=== PATIENT | female | born 2000 | race Caucasian/White ===

== ENCOUNTER 2018-12-25 21:00 | Inpatient (IN) | payer OTHER, SELFPAY ==
[2018-12-26 03:20] VITALS: BMI 35.9
--- NOTE | 2018-12-26 03:46 | PDOC.LDHP ---
Labor and Delivery H&P Chief complaint: scheduled induction HPI: 18 y/o at 39.2wks by LMP c/w 11.1 wk US here for elective induction she reports vaginal pressure and a mild headache for the past four days. Denies LOF, VB/VD, decreased movement, contractions, visual disturbance, or swelling in her hands and feet. Current gestational age (weeks): 39 (.2) Due date: 12/31/18 Dating criteria: last menstrual period Grav: 2 Para: 1 OB History Details: hx of 3rd degree perineal laceration Current complications: none Abnormal US findings: No (anterior placenta ) Past Medical History: none Current medications: pre- vitamins Previous surgical history: none Allergies/Adverse Reactions: Allergies Allergy/AdvReac Type Severity Reaction Status Date / Time No Known Allergies Allergy Verified 12/26/18 03:12 Social history: none - Physical Exam Vital signs reviewed and normal: yes General: NAD, resting Heart: RRR Lungs: CTAB Abdomen: NTTP Extremeties: no edema FHT: category 1 (baseline 140, accels, no decels), variability present [place] contractions every: 8 mins - Vaginal Exam cm dilated: 1 Effacement: 0% Station: -3 - OB Labs Blood type: O RH: positive Antibody Screen: negative HIV: negative RPR: negative HEPSAg: negative 1 hour GCT: negative GBS: negative Urine drug screen: not done Rubella: immune Additional Labs: GC neg, HbA1C 5.4, quad neg - Assessment L&D Assessment: elective induction at term - Plan Plan: admit to L&D -: - bedside sono: vertex, anterior placenta - puckett score 1, cytotec for cervical ripening q3hr as ctx pattern allows - continuous monitoring, repeat exam in 4 hours - desires epidural, anesthesia consulted Addendum - Attending - Attending Attestation Date/Time: 12/26/18 1487 I personally evaluated the patient and discussed the management with Dr. Yu. I agree with the History, Examination, Assessment and Plan documented above with any addition or exceptions noted below. Unfortunately induction delayed d/t business of L&D earlier. Now sisi relatively frequently. Monitor 2-3 hours and consider balloon placement vs rescheduling next week.
[2018-12-26] MEDS ORDERED: Promethazine HCl 25 MG/ML VIAL IM PRN ×2 (03:50→23:50)
[2018-12-26] MEDS ORDERED: NS / Oxytocin 40 units/1000ml 1,000 ML IV PRN (03:50)
[2018-12-26] MEDS ORDERED: Ondansetron PF 4 MG/2 ML Vial IVP PRN ×2 (03:50→23:50)
[2018-12-26] MEDS ORDERED: Carboprost 250 MCG/ML AMP IM PRN (03:50)
[2018-12-26] MEDS ORDERED: Methylergonovine 0.2 MG/ML VIAL IM PRN (03:50)
[2018-12-26] MEDS ORDERED: Diphenoxylate HCl/Atropine Tablet PO PRN (03:50)
[2018-12-26] MEDS ORDERED: Ibuprofen 800 MG TAB PO PRN (03:50)
[2018-12-26] MEDS ORDERED: Lidocaine 1% (PF) 30 ML VIAL SC PRN (03:50)
[2018-12-26] MEDS ORDERED: Misoprostol 200 MCG TAB PR PRN (03:50)
[2018-12-26 04:16] LABS: Hemoglobin 12.5 g/dL (12.0-16.0); Mean Corpuscular HGB CONC 33.2 g/dL (32.0-36.0); Mean Corpuscular Hemoglobin 27.9 pg (25.0-35.0); Mean Corpuscular Volume 83.8 fL (78.0-98.0); Mean Platelet Volume 8.4 fL (7.4-10.4); Platelet Count 259 thou/uL (130-400); RBC Distribution Width 13.1 % (11.5-14.5); Red Blood Cell (RBC) Count 4.47 mill/uL (4.00-5.20); White Blood Cell (WBC) Count 7.9 thou/uL (4.8-10.8)
[2018-12-26 05:00] LABS: Syphilis Antibody Nonreactive (Nonreactive); Syphilis Antibody Index 0.04 S/CO (<1.00 Non-Reactive)
[2018-12-26 05:01] LABS: HBSAg Index 0.27 S/CO (0-0.99); Hep B Surf Ag Non-Reactive S/CO (NonReactive)
[2018-12-26] MEDS: Misoprostol 100 MCG TAB VAG SCH (05:32)
[2018-12-26] MEDS: Lactated Ringer's 1,000 ML IV SCH ×2 (05:37→23:55)
--- NOTE | 2018-12-26 06:32 | PDOC.LDPN ---
Labor & Delivery Progress Note - Subjective Subjective: comfortable - Objective Vital signs reviewed and normal: yes General: NAD, breathing through contractions Uterine fundus: non tender Dilation: 3 Effacement: 50% Station: -1 FHT: category 1 (baseline 150, accels, no decels), variability present [place] contractions every: 8 mins - Assessment (1) Normal intrauterine in third trimester Code(s): Z34.93 - ENCNTR FOR SUPRVSN OF NORMAL PREG, UNSP, THIRD TRIMESTER Status: Acute Plan: continue plan of care -: - bedside sono: vertex, anterior placenta - progressing in labor, re-evaulate in 2-3 hours, pitocin for augmentation if needed - continuous monitoring - desires epidural, anesthesia consulted Addendum - Attending - Attending Attestation Date/Time: 12/26/18 2046 I personally evaluated the patient and discussed the management with Dr. Yu. I agree with the History, Examination, Assessment and Plan documented above with any addition or exceptions noted below.
[2018-12-26] MEDS ORDERED: NS w/ Oxytocin 10 units 500 ML ONE (09:25)
--- NOTE | 2018-12-26 11:12 | PDOC.LDPN ---
Labor & Delivery Progress Note - Subjective Subjective: painful contractions - Objective Vital signs reviewed and normal: yes General: NAD, resting, breathing through contractions Uterine fundus: non tender SVE: 3/40/-2 Dilation: 3 Station: -2 FHT: category 1 (140s, mod variability, accels present, no decels) [place] contractions every: 2-3 minutes Other exam findings: anterior position and moderate conisistancy - Assessment (1) Normal intrauterine in third trimester Code(s): Z34.93 - ENCNTR FOR SUPRVSN OF NORMAL PREG, UNSP, THIRD TRIMESTER Current Visit: Yes Status: Acute (2) History of third degree perineal laceration Code(s): Z87.59 - PERSONAL HISTORY OF COMP OF PREG, CHLDBRTH AND THE PUERP Current Visit: No Status: Resolved Plan: continue plan of care, pitocin for augmentation -: 18 yr old at 39.2 wks by LMP/ 11.1 wk sono here for elective induction. sIUP induction of labor -pit began around 0930 -exam at this time (approx 2 hours after pit began) changed as went form posterior position to anterior, otherwise cervical exam unchanged. -continue with pitocin and recheck in 2 hours. -Patient desires epidural but not at this time. -GBS neg hx of episiotomy with traumatic 3rd degree extension hx of VAVD 2/2 maternal exhaustion -7 lb 3 oz Addendum - Attending - Attending Attestation Date/Time: 12/26/18 1400 I personally evaluated the patient and discussed the management with Dr. Howell. I agree with the History, Examination, Assessment and Plan documented above with any addition or exceptions noted below.
--- NOTE | 2018-12-26 14:21 | PDOC.LDPN ---
Labor & Delivery Progress Note - Subjective Subjective: comfortable - Objective Vital signs reviewed and normal: yes General: NAD, resting Uterine fundus: tender to palpation Dilation: 3 Effacement: 50% Station: -2 FHT: category 2, acceleration absent [place] contractions every: 3-4 Other exam findings: minimal variablity at the moment, many periods of moderate variability - Assessment (1) Normal intrauterine in third trimester Code(s): Z34.93 - ENCNTR FOR SUPRVSN OF NORMAL PREG, UNSP, THIRD TRIMESTER Current Visit: Yes Status: Acute -: 18 yr old at 39.2 wks by LMP/ 11.1 wk sono here for elective induction. sIUP induction of labor -pit began around 0930 (puckett 5 with good cxns on monitor at that time), stopped at 1400 as minimal cervical change - will place cytotec 25mg vaginally, plan to restart pitocin after cervical ripening -Patient desires epidural but not at this time, she is not feeling her contractions as of now -GBS neg 1400 SVE 3/40/-2 Cat 2, minimal variability, no decels, accels presen hx of episiotomy with traumatic 3rd degree extension hx of VAVD 2/2 maternal exhaustion -7 lb 3 oz Hx of PPH s/p
[2018-12-26] MEDS ORDERED: Misoprostol 100 MCG TAB VAG SCH (14:30)
--- NOTE | 2018-12-26 17:26 | PDOC.LDPN ---
Labor & Delivery Progress Note - Subjective Subjective: comfortable - Objective Vital signs reviewed and normal: yes General: NAD, breathing through contractions Dilation: 4 Effacement: 50% Station: -2 FHT: category 1 [place] contractions every: 4-5 min - Assessment (1) Normal intrauterine in third trimester Code(s): Z34.93 - ENCNTR FOR SUPRVSN OF NORMAL PREG, UNSP, THIRD TRIMESTER Current Visit: Yes Status: Acute -: 18 yr old at 39.2 wks by LMP/ 11.1 wk sono here for elective induction. # sIUP induction of labor -pit began around 0930 (puckett 5 with good cxns on monitor at that time), stopped at 1400 as minimal cervical change -cytotec placed at 1500 -Patient desires epidural but not at this time, she is still not really feeling her contractions -GBS neg 1400 SVE 3/40/-2 1515 SVE 4/50/-2 Cat 1 good variability, accels present, no decels # hx of episiotomy with traumatic 3rd degree extension # hx of VAVD 2/2 maternal exhaustion -7 lb 3 oz # Hx of PPH s/p
--- NOTE | 2018-12-26 19:12 | PDOC.LDPN ---
Labor & Delivery Progress Note - Subjective Subjective: painful contractions - Objective Vital signs reviewed and normal: yes General: NAD Uterine fundus: non tender Dilation: 4 Effacement: 50% Station: -2 FHT: category 1 (baseline 145, acel, no decel), variability present [place] contractions every: 4-5mins - Assessment (1) Normal intrauterine in third trimester Code(s): Z34.93 - ENCNTR FOR SUPRVSN OF NORMAL PREG, UNSP, THIRD TRIMESTER Current Visit: Yes Status: Acute Plan: pitocin for augmentation -: 18 yr old at 39.2 wks by LMP/ 11.1 wk sono here for elective induction. # sIUP induction of labor -pit began around 0930 (puckett 5 with good cxns on monitor at that time), stopped at 1400 as minimal cervical change -cytotec placed at 1500. recheck at 1930 /-2, restart pitocin -Patient desires epidural but not at this time, she is still not really feeling her contractions -GBS neg # hx of episiotomy with traumatic 3rd degree extension # hx of VAVD 2/2 maternal exhaustion -7 lb 3 oz # Hx of PPH s/p
[2018-12-26] MEDS ORDERED: Butorphanol Tartrate 1 MG/ML VIAL SLOW IVP PRN ×2 (22:03→22:09)
[2018-12-26] MEDS ORDERED: Ibuprofen 200 MG TAB PO PRN (22:05)
--- NOTE | 2018-12-26 22:40 | PDOC.LDPN ---
Labor & Delivery Progress Note - Objective Vital signs reviewed and normal: yes General: NAD Uterine fundus: palpable contractions SVE: 4/60/-1 FHT: category 1 [place] contractions every: q3-5 min - Assessment (1) Normal intrauterine in third trimester Code(s): Z34.93 - ENCNTR FOR SUPRVSN OF NORMAL PREG, UNSP, THIRD TRIMESTER Current Visit: Yes Status: Acute Comment: This note is regarding my exam and assessment at 9pm. AROM, clear. head well engated. I could not pass the IUPC. Continue pitocin and care. Reviewed the car eplan with Dimitrios. She and her family are pleased with the plan. (2) History of third degree perineal laceration Code(s): Z87.59 - PERSONAL HISTORY OF COMP OF PREG, CHLDBRTH AND THE PUERP Current Visit: No Status: Resolved
[2018-12-26] MEDS ORDERED: Butorphanol Tartrate 1 MG/ML VIAL SLOW IVP SCH (23:00)
[2018-12-26] MEDS ORDERED: Fentanyl 4 mcg/Bup 0.1% Cadd 100 ML ONE (23:12)
[2018-12-26] MEDS ORDERED: Communication Order-Pharmacy FS SCH (23:45)
[2018-12-26] MEDS ORDERED: Fentanyl 4 mcg/Bupivacaine 0.1% Cassette 100 ML EPIDURAL SCH (23:45)
[2018-12-26] MEDS ORDERED: Naloxone HCl 0.4 mg/ml Vial IVP PRN ×2 (23:50)
[2018-12-26] MEDS ORDERED: Eucerin (Mineral Oil/Petrolatum,White) 30 gm Jar TOP PRN (23:50)
[2018-12-26] MEDS ORDERED: ePHEDrine/0.9% NaCl/PF SYRINGE 50 mg/10 ml SLOW IVP PRN (23:50)
[2018-12-26] MEDS ORDERED: Lactated Ringer's 500 ML IV PRN (23:50)
[2018-12-26] MEDS ORDERED: diphenhydrAMINE 50 MG/ML VIAL IVP PRN (23:50)
--- NOTE | 2018-12-27 00:51 | PDOC.LDPN ---
Labor & Delivery Progress Note - Subjective Subjective: painful contractions - Objective Vital signs reviewed and normal: yes General: breathing through contractions Uterine fundus: non tender Dilation: 8 Effacement: 100% Station: 0 FHT: category 1 (baseline 150, accels, quick decel recovery), early decelerations, variability present [place] contractions every: 3min AROM: clear fluid - Assessment (1) Normal intrauterine in third trimester Code(s): Z34.93 - ENCNTR FOR SUPRVSN OF NORMAL PREG, UNSP, THIRD TRIMESTER Current Visit: Yes Status: Acute Plan: continue plan of care, pitocin for augmentation -: 18 yr old at 39.2 wks by LMP/ 11.1 wk sono here for elective induction. # sIUP induction of labor -pit began around 0930 (puckett 5 with good cxns on monitor at that time), stopped at 1400 as minimal cervical change -cytotec placed at 1500. recheck at 1930 4/50/-2, restarted pitocin -epidural placed with adequate pain control -GBS neg # hx of episiotomy with traumatic 3rd degree extension # hx of VAVD 2/2 maternal exhaustion -7 lb 3 oz infant # Hx of PPH s/p Addendum - Attending - Attending Attestation Date/Time: 12/28/18 2293 I personally evaluated the patient and discussed the management with Dr. Yu. I agree with the History, Examination, Assessment and Plan documented above with any addition or exceptions noted below.
--- NOTE | 2018-12-27 03:30 | PDOC.OPDEL ---
OB Operative/Delivery Note Delivery Dr/Surgeon: Davon Mccartney [place] Pre-Delivery Diagnosis: elective induction Procedure/Post Delivery Dx: spontaneous vaginal delivery Weeks gestation: 39 (.3) Anesthesia: spinal - Findings A Sex: female - 1 min: 7 - 5 min: 9 - Additional Findings/Plan Placenta delivered: spontaneous Repaired Obstetrical Laceration: none Estimated blood loss: 200 Compilations/Other Findings: This is 18 yo F @ 39.3 wks who delivered a viable F at 0254 on 12/27/18. Following an uneventful antepartum course, a vigorous F was delivered over an intact perineum in the transverse position. Anterior Shoulder and then remainder of the body delivered. No nuchal cord. The head was held down and mouth and nares were bulb suctioned. Cord clamped after delayed cord clamping and cut and cord blood collected. Placenta delivered intact in the [place] presetation with a 3 vessel cord noted. Fundal massage was performed and the fundus was firm. The cervix and vagina were inspected and found to be free of lacerations. Infant went to nursery in good condition for routine care. Apgars were 7/9 at 1 & 5 minutes, respectively. Patient tolerated delivery well and went to after routine recovery/ care. Post delivery plan: routine recovery
[2018-12-27] MEDS ORDERED: Bisacodyl 10 MG SUPP PR PRN (05:11)
[2018-12-27] MEDS ORDERED: NS / Oxytocin 40 units/1000ml 1,000 ML IV SCH (05:11)
[2018-12-27] MEDS: Misoprostol 100 MCG TAB VAG SCH ×3 (07:47→13:28)
[2018-12-27] MEDS: Lactated Ringer's 1,000 ML IV SCH ×2 (07:48→16:18)
[2018-12-27] MEDS ORDERED: Milk Of Magnesia 30 ML UDCUP PO PRN (09:00)
[2018-12-27] MEDS ORDERED: Adacel (T-DAP) 0.5 ML SYRINGE IM ONE (09:00)
[2018-12-27] MEDS ORDERED: Bupivacaine 0.25% HCL 30 ML VIAL ONE (11:11)
[2018-12-27] MEDS: Prenatal Vitamin 1 TAB PO SCH (13:30)
[2018-12-27] MEDS: Docusate Calcium (SURFAK) 240 MG CAP PO SCH ×2 (13:30→23:09)
[2018-12-27] MEDS: NS w/ Oxytocin 10 units 500 ML IV SCH ×2 (13:30→16:18)
[2018-12-27] MEDS: Acetaminophen 325 MG TAB PO PRN ×2 (13:45→23:08)
[2018-12-28] MEDS: Acetaminophen 325 MG TAB PO PRN (05:16)
[2018-12-28 05:52] VITALS: BP 95/55; TEMP 98
--- NOTE | 2018-12-28 07:22 | PDOC.PP ---
Post Progress Note Post Day #: 1 Subjective: Patient feeling well overall. Eating, drinking, ambulating well. Patient states she is having minimal bleeding. No lightheadedness or weakness. PO intake tolerated: yes Flatus: yes Ambulation: yes Vital Signs (12 hours) Temp Pulse Resp BP Pulse Ox 12/28/18 05:11 98.0 F 80 17 95/55 L 12/27/18 20:00 98 Weight Weight 83.461 kg - Physical Examination General: NAD Cardiovascular: no m/r/g, RRR Respiratory: clear to auscultation bilaterally, non-labored breathing Abdominal: + bowel sounds, lochia, no distention, appropriately TTP Fundus firm & at: 2cm below umbilicus Extremities: negative homans (B) Neurological: no gross focal deficits Psychiatric: A&Ox3, normal affect Result Diagrams: 12/28/18 07:41 Additional Labs: Post Labs Blood Type O POSITIVE 12/26/18 04:05 Hep Bs Antigen Non-Reactive S/CO (NonReactive) 12/26/18 04:05 (1) Normal intrauterine in third trimester Code(s): Z34.93 - ENCNTR FOR SUPRVSN OF NORMAL PREG, UNSP, THIRD TRIMESTER Status: Acute - Assessment/Plan PP day 1 18 yr old delivered at 39.3 wks by by #PP day 1 - ambulating and eating w/o difficulty - minimal vaginal bleeding - pain well controlled - plan for home today pending infant's bili Addendum - Attending - Attending Attestation Date/Time: 12/28/18 0910 I personally evaluated the patient and discussed the management with Dr. Chairez. I agree with the History, Examination, Assessment and Plan documented above with any addition or exceptions noted below. Stable for discharge.
[2018-12-28 07:54] LABS: Hemoglobin 11.6 g/dL (12.0-16.0); Mean Corpuscular HGB CONC 33.5 g/dL (32.0-36.0); Mean Corpuscular Hemoglobin 27.6 pg (25.0-35.0); Mean Corpuscular Volume 82.4 fL (78.0-98.0); Mean Platelet Volume 7.8 fL (7.4-10.4); Platelet Count 237 thou/uL (130-400); RBC Distribution Width 13.2 % (11.5-14.5); White Blood Cell (WBC) Count 8.9 thou/uL (4.8-10.8)
[2018-12-28] MEDS: Prenatal Vitamin 1 TAB PO SCH (08:38)
[2018-12-28] MEDS: Docusate Calcium (SURFAK) 240 MG CAP PO SCH (08:39)
[2018-12-28] MEDS: NS w/ Oxytocin 10 units 500 ML IV SCH (11:17)
== END 2018-12-28 14:00 | disposition home or self-care (01) | DRG 807 ==
LOC: L&D 12-26 02:20 → 3SW 12-27 12:17
PROVIDERS: ADMIT Emergency Medicine; ATTEND Emergency Medicine
PROC: 10E0XZZ Delivery of Products of Conception, External Approach (ICD-10-PCS; principal; 2018-12-27)
PROC: 10907ZC Drainage of Amniotic Fluid, Therapeutic from Products of Conception, Via Natural or Artificial Opening (ICD-10-PCS; 2018-12-27)
PROC: 3E0P7VZ Introduction of Hormone into Female Reproductive, Via Natural or Artificial Opening (ICD-10-PCS; 2018-12-27)
DX: O80 Encounter for full-term uncomplicated delivery (principal); Z37.0 Single live birth; Z3A.39 39 weeks gestation of pregnancy; Z67.40 Type O blood, Rh positive; Z87.59 Personal history of other complications of pregnancy, childbirth and the puerperium
CPT/HCPCS: 36415; 51702; 76815; 85027; 86780; 86850; 86900; 86901; 87340; J0595; J2001; J3490; S0020